=== PATIENT | male | born 1995 | race Caucasian/White ===

== ENCOUNTER 2017-07-26 01:08 | Emergency (ER) | payer BC ==
[~2017-07-26] VITALS: Ht 188 cm; Wt 107.6 kg
[2017-07-26 01:22] VITALS: TEMP 37.3; Ht 188 cm; Wt 107.6 kg
[2017-07-26] MEDS ORDERED: XYLOCAINE 1%/SOD BICARB 20 ML VIAL INFIL ONE (01:45)
[2017-07-26 04:16] VITALS: BP 140/97; PULSE 107; O2SAT 98
--- NOTE | 2017-07-26 07:07 | DIAGNOSTIC IMAGING REPORT ---
HEAD WITHOUT CONTRAST (CT) CLINICAL HISTORY: 21 years-old Male presenting with Left side facial injury. TECHNIQUE: Multidetector CT imaging of the head was performed without the use of intravenous contrast. IV contrast: None. A dose lowering technique was used consistent with the principles of ALARA (as low as reasonably achievable). COMPARISON: None. CT DOSE (mGy.cm): The estimated cumulative dose is 881.84 mGy.cm. FINDINGS: Family Life Counselor topogram: Unremarkable. Ventricles and sulci normal in size. 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 Brain parenchyma normal in appearance with preserved seth-white differentiation. No mass effect or midline shift. No hemorrhage or acute territorial infarct. No extra-axial fluid collection. Paranasal sinuses and mastoid air cells clear. Calvarium intact. Minimal soft tissue swelling suggested superficial to the left zygomatic process. IMPRESSION: 1. No acute intracranial pathology. 2. Suggestion of minimal soft tissue contusion over the left segmented process. Electronically signed by: Sylvester Friend M.D. 07/26/2017 7:06 AM Dictated Date/Time: 07/26/2017 7:02 AM
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
== END 2017-07-26 04:17 | disposition home or self-care (01) ==
LOC: C.EDB 01:11 → C.EDC 04:17
DX: S01.511A Laceration without foreign body of lip, initial encounter (principal); S01.81XA Laceration without foreign body of other part of head, initial encounter; S09.93XA Unspecified injury of face, initial encounter; Y09 Assault by unspecified means